=== PATIENT | female | born 1945 ===

== ENCOUNTER 2018-04-12 11:18 | Emergency (ER) | payer MEDICARE ==
[2018-04-12 13:45] LABS: BASO % 0.8 % (0.0-2.0); EOS # 0.2 K/uL (0.0-0.7); EOS % 4.6 % (0.0-4.0); HEMOGLOBIN 12.7 g/dL (11.0-16.0); LYMPH # 1.2 K/uL (1.0-4.3); MEAN CELL VOLUME 92.5 fL (81.0-99.0); MEAN CORPUSCULAR HEMOGLOBIN 31.8 pg (27.0-31.0); MEAN CORPUSCULAR HGB CONC 34.4 g/dL (33.0-37.0); MEAN PLATELET VOLUME 9.6 fL (7.2-11.7); MONO # 0.6 K/uL (0.0-0.8); MONO % 11.4 % (0.0-10.0); NEUT # 2.9 K/uL (1.8-7.0); NEUT % 59.2 % (50.0-75.0); NRBC % 0.1 % (0.0-2.0); RBC 3.98 Mil/uL (3.80-5.20); WHITE BLOOD COUNT 4.8 K/uL (4.8-10.8)
[2018-04-12 13:49] LABS: ALB/GLOB RATIO 1.4 (1.0-2.1); ALBUMIN 4.7 g/dL (3.5-5.0); ALT/SGPT 85 U/L (9-52); AST/SGOT 64 U/L (14-36); BLOOD UREA NITROGEN 19 mg/dL (7-17); CALCIUM 9.7 mg/dl (8.6-10.4); GFR NON-AFRICAN AMERICAN > 60
[2018-04-12 14:35] VITALS: RESP 20; O2SAT 100
[2018-04-12 16:14] VITALS: BP 157/72; PULSE 64; TEMP 97.8
--- NOTE | 2018-04-12 16:16 | C.PDOC ---
History Of Present Illness 72-year-old female, PMHx includes hypertension, presents to the emergency department with complaints of elevated blood pressure at home. Patient denies any complaints at this time. Chief Complaint (Nursing): High Blood Pressure History Per: Patient History/Exam Limitations: no limitations Past Medical History Reviewed: Historical Data, Nursing Documentation, Vital Signs Vital Signs: Last Vital Signs Temp 98.3 F 04/12/18 11:54 Pulse 66 04/12/18 14:34 Resp 20 04/12/18 14:34 BP 173/84 H 04/12/18 14:34 Pulse Ox 100 04/12/18 14:34 - Medical History PMH: HTN Family History: States: No Known Family Hx - Social History Hx Alcohol Use: No Hx Substance Use: No - Immunization History Hx Tetanus Toxoid Vaccination: No Hx Influenza Vaccination: Yes Hx Pneumococcal Vaccination: No Review Of Systems Constitutional: Negative for: Fever, Chills Cardiovascular: Negative for: Chest Pain, Palpitations Respiratory: Negative for: Shortness of Breath Gastrointestinal: Negative for: Nausea, Vomiting, Abdominal Pain Musculoskeletal: Negative for: Back Pain Skin: Negative for: Rash Neurological: Negative for: Weakness, Numbness, Headache, Dizziness Physical Exam - Physical Exam Appears: Non-toxic, No Acute Distress Skin: Warm, Dry, No Rash Head: Atraumatic, Normacephalic Eye(s): bilateral: Normal Inspection Nose: Normal Oral Mucosa: Moist Lips: Normal Appearing Neck: Normal ROM Chest: Symmetrical Cardiovascular: Rhythm Regular, No Murmur Respiratory: Normal Breath Sounds, No Accessory Muscle Use Gastrointestinal/Abdominal: Soft, No Tenderness Extremity: Normal ROM, No Deformity Neurological/Psych: Oriented x3, Normal Speech ED Course And Treatment - Laboratory Results Result Diagrams: 04/12/18 13:32 04/12/18 13:32 O2 Sat by Pulse Oximetry: 100 Pulse Ox Interpretation: Normal (RA) Disposition - Disposition Referrals: Nasra Juarez MD [Medical Doctor] - Disposition: HOME/ ROUTINE Disposition Time: 14:00 Condition: IMPROVED Additional Instructions: MICHAEL LOWE, thank you for letting us take care of you today. Your provider was Kamron Brower DO and you were treated for HIGH BP. The emergency medical care you received today was directed at your acute symptoms. If you were prescribed any medication, please fill it and take as directed. It may take several days for your symptoms to resolve. Return to the Emergency Department if your symptoms worsen, do not improve, or if you have any other problems. Please contact your doctor or call one of the physicians/clinics you have been referred to that are listed on the Patient Visit Information form that is included in your discharge packet. Bring any paperwork you were given at d ischarge with you along with any medications you are taking to your follow up visit. Our treatment cannot replace ongoing medical care by a primary care provider outside of the emergency department. Thank you for allowing the [facility] team to be part of your care today. Follow up with your primary care doctor tomorrow for a blood pressure check and re-evaluation. Instructions: High Blood Pressure in Adults Forms: [employer] (Turkmen) - Clinical Impression Clinical Impression: Hypertension - Scribe Statement The provider has reviewed the documentation as recorded by the Scribe (Cirilo Chowdary) Provider Attestation: All medical record entries made by the Scribe were at my direction and personally dictated by me. I have reviewed the chart and agree that the record accurately reflects my personal performance of the history, physical exam, medical decision making, and the department course for this patient. I have also personally directed, reviewed, and agree with the discharge instructions and disposition.
== END 2018-04-12 15:04 | disposition home or self-care (01) ==
LOC: C.ER 11:18
DX: I10 Essential (primary) hypertension (principal)

== ENCOUNTER 2018-04-15 14:52 | Emergency (ER) | payer MEDICARE ==
[2018-04-15 15:02] VITALS: BMI 30.5
--- NOTE | 2018-04-15 15:59 | C.PDOC ---
History Of Present Illness 72 y/o female, w/PMhx of HTN, presents to the ER for evaluation of elevated blood pressure [employer]. Patient states that she checked her blood pressure at home, she had blood pressure 228/96. Patient reports that her PMD Dr Juarez increased her dosage for Losartan to 100 mg two days ago. She notes that she also took Nyquil last night. Denies having dizziness, headache, CP, palpitations, leg swelling, syncope, and SOB. Time Seen by Provider: 04/15/18 15:44 Chief Complaint (Nursing): High Blood Pressure History Per: Patient History/Exam Limitations: no limitations Onset/Duration Of Symptoms: Hrs Past Medical History Reviewed: Historical Data, Nursing Documentation, Vital Signs Vital Signs: Last Vital Signs Temp 98.8 F 04/15/18 15:06 Pulse 72 04/15/18 15:06 Resp 17 04/15/18 15:06 BP 186/79 H 04/15/18 15:06 Pulse Ox 97 04/15/18 15:06 - Medical History PMH: HTN, Hypercholesterolemia Surgical History: No Surg Hx Family History: States: No Known Family Hx - Social History Hx Alcohol Use: Yes Hx Substance Use: No - Immunization History Hx Tetanus Toxoid Vaccination: No Hx Influenza Vaccination: Yes (03/2018) Hx Pneumococcal Vaccination: No Review Of Systems Except As Marked, All Systems Reviewed And Found Negative. Constitutional: Positive for: Other (elevated blood pressure) Cardiovascular: Negative for: Chest Pain Respiratory: Negative for: Shortness of Breath Neurological: Negative for: Headache, Dizziness Physical Exam - Physical Exam Appears: Non-toxic, No Acute Distress Skin: Normal Color, Warm, Dry Head: Atraumatic, Normacephalic Eye(s): bilateral: Normal Inspection, EOMI Nose: Normal Oral Mucosa: Moist Neck: Normal ROM, Supple Chest: Symmetrical Cardiovascular: Rhythm Regular Respiratory: Normal Breath Sounds, No Rales, No Rhonchi, No Wheezing Gastrointestinal/Abdominal: Normal Exam, Soft, No Tenderness Neurological/Psych: Oriented x3, Normal Speech ED Course And Treatment O2 Sat by Pulse Oximetry: 97 (RA) Pulse Ox Interpretation: Normal Progress Note: Pts BP repeated x 2 . Pt remains asymptomatic. BP is being monitored by PMD. Case discussed with Dr Juarez who instructs pt to come to offfice after discharge. Pt verbalzes understanding. Disposition - Disposition Disposition: HOME/ ROUTINE Disposition Time: 15:58 Condition: STABLE Additional Instructions: Go to your doctors office after discharge. 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 - Scribe Statement The provider has reviewed the documentation as recorded by the Jaunibe Jessica Alex Provider Attestation All medical record entries made by the Jaunibe were at my direction and personally dictated by me. I have reviewed the chart and agree that the record accurately reflects my personal performance of the history, physical exam, medical decision making, and the department course for this patient. I have also personally directed, reviewed, and agree with the discharge instructions and disposition.
[2018-04-15 16:08] VITALS: BP 167/77; PULSE 70; RESP 18; TEMP 98.7
[2018-04-15 16:13] VITALS: O2SAT 97
== END 2018-04-15 16:06 | disposition home or self-care (01) ==
LOC: C.ER 14:52
DX: I10 Essential (primary) hypertension (principal); E78.00 Pure hypercholesterolemia, unspecified

== ENCOUNTER 2018-10-14 08:58 | Outpatient (CLI) | payer OTHER | END 2018-10-14 08:59 | disposition home or self-care (01) | LOC: C.LAB 08:58 | DX: E78.2 Mixed hyperlipidemia (principal); R53.82 Chronic fatigue, unspecified; R73.9 Hyperglycemia, unspecified ==